=== PATIENT | male | born 1985 | race Caucasian/White ===

== ENCOUNTER 2016-11-09 10:26 | Emergency (ER) | payer BC ==
[2016-11-09 10:41] VITALS: BP 185/101
--- NOTE | 2016-11-09 11:05 | EDM.PDOC ---
ED HPI GENERAL MEDICAL PROBLEM - General Chief Complaint: Back Pain or Injury Stated Complaint: LOW BACK PAIN Time Seen by Provider: 11/09/16 11:03 Source of Information: Reports: Patient, RN Notes Reviewed - History of Present Illness INITIAL COMMENTS - FREE TEXT/NARRATIVE: 31-year-old male comes in with severe low back pain. He does have history of chronic low back pain. He has had previous surgery about a year and a half ago. 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 The pain is primarily in the low back with radiation to the buttocks bilaterally. The pain is worse with any type of motion. He states he has taken some Motrin and that has not given meaningful relief. No fall or other injury. Lower Back Pain Score (Numeric/FACES): 9 - Related Data Allergies Allergy/AdvReac Type Severity Reaction Status Date / Time Fish Containing Products Allergy Anaphylactic Verified 11/09/16 10:42 Shock shellfish derived Allergy Anaphylactic Verified 11/09/16 10:42 Shock Home Meds: Home Meds Acetaminophen/oxyCODONE [Percocet 325-5 MG] 1 tab PO Q6H PRN #20 tablet [Rx] LORazepam [Ativan] 1 mg PO Q12HR PRN #10 tablet 11/09/16 [Rx] Losartan/Hydrochlorothiazide [Hyzaar 100-25 Tablet] 1 tab PO DAILY 11/09/16 [ History] Terbinafine [LamISIL] 250 mg PO DAILY 11/09/16 [History] Past Medical History Musculoskeletal History: Reports: Back Pain, Chronic, Other (See Below) - Past Surgical History Musculoskeletal Surgical History: Reports: Other (See Below) Other Musculoskeletal Surgeries/Procedures:: back surgery Social & Family History - Family History Family Medical History: Noncontributory - Tobacco Use Smoking Status *Q: Current Some Day Smoker Years of Tobacco use: 20 Packs/Tins Daily: 0.5 - Caffeine Use Caffeine Use: Reports: Energy Drinks, Soda - Recreational Drug Use Recreational Drug Use: No ED ROS GENERAL - Review of Systems Review Of Systems: See Below Constitutional: Denies: Fever, Chills HEENT: Reports: No Symptoms Respiratory: Denies: Shortness of Breath, Pleuritic Chest Pain Cardiovascular: Denies: Chest Pain GI/Abdominal: Denies: Abdominal Pain, Nausea, Vomiting Musculoskeletal: Reports: Back Pain (Low back) Skin: Reports: No Symptoms Neurological: Denies: Numbness, Tingling ED EXAM,LOWER BACK PAIN/INJURY - Physical Exam Exam: See Below General Appearance: Alert, Moderate Distress Throat/Mouth: Normal Inspection Neck: Supple, Full Range of Motion Respiratory/Chest: No Respiratory Distress, Lungs Clear, Normal Breath Sounds Cardiovascular: Regular Rate, Rhythm Back Exam: Paraspinal Tenderness (Mild bilateral), Other (No bruising swelling warmth or erythema). No: Vertebral Tenderness Extremities: No: Pedal Edema, Leg Pain Neurological: Alert, No Motor/Sensory Deficits Course - Vital Signs Last Recorded V/S: Last Vital Signs Temp 98.4 F 11/09/16 10:37 Pulse 113 H 11/09/16 10:37 Resp 24 H 11/09/16 10:37 BP 185/101 H 11/09/16 10:37 Pulse Ox 99 11/09/16 10:37 - Orders/Labs/Meds Meds: Medications Discontinued Medications Generic Name Dose Route Start Last Admin Trade Name Freq PRN Reason Stop Dose Admin Acetaminophen 975 mg 11/09/16 11:13 11/09/16 11:24 Tylenol PO 11/09/16 11:14 975 mg NOW ONE Administration Ketorolac Tromethamine 30 mg 11/09/16 11:15 11/09/16 11:24 Toradol IVPUSH 30 mg ONETIME OFE Administration Departure - Departure Time of Disposition: 11:14 Disposition: Home, Self-Care 01 Condition: fair Clinical Impression: Low back strain Qualifiers: Encounter type: initial encounter Qualified Code(s): S39.012A - Strain of muscle, fascia and tendon of lower back, initial encounter - Discharge Information Prescriptions: LORazepam [Ativan] 1 mg PO Q12HR PRN #10 tablet PRN Reason: Muscle Spasm Acetaminophen/oxyCODONE [Percocet 325-5 MG] 1 tab PO Q6H PRN #20 tablet PRN Reason: Pain Instructions: Muscle Strain, [id number] Referrals: PCP,Unknown [Ordering Only Provider] - Forms: ED Department Discharge Additional Instructions: Rest back, alternate ice and heat as needed, he may continue Motrin or ibuprofen 2-3 times daily, Tylenol for mild to moderate discomfort or Percocet if needed for more severe pain, Ativan 1 mg twice daily if needed for muscle and nerve relaxation, do not take Tylenol and Percocet at the same time, do not drive or work when taking Ativan and Percocet as they are sedating-type medication. Followup with the clinic provider in about 3-5 days if symptoms not resolving, call [phone] as needed for appointment
[2016-11-09] MEDS ORDERED: Acetaminophen 325 MG Tab PO ONE (11:13)
[2016-11-09] MEDS ORDERED: Ketorolac 30 MG/ML SDV IVPUSH SCH (11:15)
== END 2016-11-09 11:30 | disposition home or self-care (01) ==
LOC: JD.ED 10:26
DX: S39.012A Strain of muscle, fascia and tendon of lower back, initial encounter (principal); F17.210 Nicotine dependence, cigarettes, uncomplicated; Z98.890 Other specified postprocedural states; Z91.013 Allergy to seafood; X50.0XXA Overexertion from strenuous movement or load, initial encounter
CPT/HCPCS: 96374; 99283; A9270; J1885; 99284

== ENCOUNTER 2019-08-06 07:01 | Emergency (ER) | payer OTHER ==
[2019-08-06 07:20] VITALS: BP 191/125; PULSE 120
[2019-08-06] MEDS ORDERED: Sodium Chloride 0.9% 10 ML Syringe FLUSH PRN (07:29)
[2019-08-06] MEDS ORDERED: Metoclopramide 10 MG/2 ML SDV IVPUSH ONE (07:30)
[2019-08-06] MEDS ORDERED: diphenhydrAMINE 50 MG/ML SDV IVPUSH ONE (07:31)
[2019-08-06] MEDS ORDERED: HYDROmorphone 1 MG/ML Syringe IVPUSH ONE ×2 (07:31→08:43)
--- NOTE | 2019-08-06 07:34 | EDM.PDOC ---
ED HPI GENERAL MEDICAL PROBLEM - General Chief Complaint: Back Pain or Injury Stated Complaint: L FLANK PAIN Time Seen by Provider: 08/06/19 07:20 Source of Information: Reports: Patient History Limitations: Reports: No Limitations - History of Present Illness INITIAL COMMENTS - FREE TEXT/NARRATIVE: 34-year-old male presents to the ED with acute onset of pain left posterior lateral lower ribs after coughing jag last evening about 1800 hrs. He felt something pop and tear in his left flank area which remained exquisitely tender with every breath. He coughed again about 2130 hrs. last night and felt a worsening of the pain. Every breath is very painful at this point time as is any movement. Unable to sleep all night due to the severity of the pain. He states he believes his cough is more from a smoker's cough as he is not ill with any fever chills etc. Pain is well localized to the left lower back over ribs 8 9 and 10 medial to the posterior axillary line. Patient denies that he has been on any steroids recently. Onset: Sudden Onset Date: 08/05/19 Onset Time: 18:00 Duration: Hour(s):, Constant, Getting Worse Location: Reports: Back (Pain is well localized to the left lower back eighth ninth and 10th ribs just medial to the posterior axillary line. No subcutaneous emphysema no crepitus palpable.) Quality: Reports: Sharp, Stabbing, Other Severity: Severe Improves with: Reports: Rest Worsens with: Reports: Other, Movement Context: Reports: Other. Denies: Activity, Exercise, Lifting, Sick Contact, Trauma Associated Symptoms: Reports: Chest Pain, Other Treatments [employer]: Reports: Other (see below) Left Upper Back Pain Score (Numeric/FACES): 10 - Related Data Allergies Allergy/AdvReac Type Severity Reaction Status Date / Time Fish Containing Products Allergy Anaphylactic Verified 08/06/19 07:20 Shock shellfish derived Allergy Anaphylactic Verified 08/06/19 07:20 Shock Home Meds: Home Meds Losartan/Hydrochlorothiazide [Hyzaar 100-25 Tablet] 1 tab PO DAILY 11/09/16 [ History] Acetaminophen/HYDROcodone [Llano 325-10 MG] 1 - 2 syringe PO Q6H PRN 04/07/18 [ History] Aspirin [Halfprin] 81 mg PO DAILY 04/07/18 [History] DULoxetine HCl [Duloxetine HCl] 60 mg PO DAILY 04/07/18 [History] Meloxicam 15 mg PO DAILY 04/07/18 [History] Metoprolol Succinate 100 mg PO DAILY 04/07/18 [History] Rosuvastatin [Crestor] 5 mg PO BEDTIME 04/07/18 [History] metFORMIN HCl [Metformin HCl] 500 mg PO BID 04/07/18 [History] oxyCODONE HCl/Acetaminophen [Percocet 10-325 mg Tablet] 1 - 2 each PO Q4H PRN # 28 tablet 08/06/19 [Rx] Past Medical History HEENT History: Reports: Impaired Vision Cardiovascular History: Reports: High Cholesterol, Hypertension Respiratory History: Reports: None Gastrointestinal History: Reports: None Genitourinary History: Reports: None Musculoskeletal History: Reports: Back Pain, Chronic, Other (See Below) Other Musculoskeletal History: carpal tunnel syndrome Neurological History: Reports: Neuropathy, Peripheral Psychiatric History: Reports: None Endocrine/Metabolic History: Reports: Diabetes, Type II (Trolled with metformin. ), Obesity/BMI 30+ Hematologic History: Reports: None Immunologic History: Reports: None Oncologic (Cancer) History: Reports: None Dermatologic History: Reports: None - Past Surgical History HEENT Surgical History: Reports: None Cardiovascular Surgical History: Reports: None Respiratory Surgical History: Reports: None GI Surgical History: Reports: Colonoscopy Male Surgical History: Reports: None Endocrine Surgical History: Reports: None Neurological Surgical History: Reports: Spinal Fusion Musculoskeletal Surgical History: Reports: Carpal Tunnel, Other (See Below) Other Musculoskeletal Surgeries/Procedures:: back surgery of L4L5, wrist fusion x 4, shoulder surgery, knee surgery, right carpal tunnel release Oncologic Surgical History: Reports: None Dermatological Surgical History: Reports: None Social & Family History - Family History Family Medical History: Noncontributory - Tobacco Use Smoking Status *Q: Current Every Day Smoker Tobacco Use Within Last Twelve Months: Cigarettes Years of Tobacco use: 20 Packs/Tins Daily: 1 - Caffeine Use Caffeine Use: Reports: Coffee - Recreational Drug Use Recreational Drug Use: No - Living Situation & Occupation Living situation: Reports: Occupation: Employed ED ROS GENERAL - Review of Systems Review Of Systems: See Below Constitutional: Reports: Fatigue. Denies: Fever, Chills, Malaise, Weakness HEENT: Reports: No Symptoms Respiratory: Reports: Shortness of Breath, Cough. Denies: Wheezing, Pleuritic Chest Pain Cardiovascular: Reports: No Symptoms Endocrine: Reports: No Symptoms GI/Abdominal: Reports: No Symptoms : Reports: Frequency Musculoskeletal: Reports: Back Pain Skin: Reports: No Symptoms Neurological: Reports: No Symptoms Psychiatric: Reports: No Symptoms Hematologic/Lymphatic: Reports: No Symptoms ED EXAM, UPPER BACK/NECK PAIN - Physical Exam Exam: See Below Exam Limited By: Respiratory Distress General Appearance: Alert, WD/WN, Moderate Distress GI/Abdominal: Normal Bowel Sounds, No Organomegaly, No Distention, Other ( Abdomen is obese. Very minimal tenderness to palpation along the external obliques left upper lateral abdomen.). No: Distended, Guarding, Rigid (Male) Exam: Other Back Exam: Other (It is well localized to the eighth ninth and 10th ribs just slightly medial to the posterior axillary line left lower back.) Extremities: Normal Inspection ( Subcutaneous emphysema or crepitus appreciated.), Normal Range of Motion, Non-Tender, No Pedal Edema Neurologic: No Motor/Sensory Deficits, Alert, Normal Mood/Affect, Oriented x 3 Psychiatric: Other Skin Exam: Normal Color, Warm/Dry (He is in a great deal of pain.) Course - Vital Signs Last Recorded V/S: Last Vital Signs Temp 36.7 C 08/06/19 07:17 Pulse 120 H 08/06/19 07:17 Resp 20 08/06/19 07:17 BP 191/125 H 08/06/19 07:17 Pulse Ox 97 08/06/19 07:17 - Orders/Labs/Meds Orders: Active Orders 24 hr Category Date Time Status Peripheral IV Care [RC] . DIRECTED Care 08/06/19 07:29 Active Chest wo Cont [CT] Stat Exams 08/06/19 07:29 Taken Ketorolac [Toradol] Med 08/06/19 08:45 Active 30 mg IVPUSH ONETIME Sodium Chloride 0.9% [Saline Flush] Med 08/06/19 07:29 Active 10 ml FLUSH ASDIRECTED PRN Peripheral IV Insertion Adult [OM.PC] Stat Oth 08/06/19 07:29 Ordered Medication Orders Ketorolac Tromethamine (Toradol) 30 mg IVPUSH ONETIME [facility] Last Admin: 08/06/19 09:01 Dose: 30 mg Sodium Chloride (Saline Flush) 10 ml FLUSH ASDIRECTED PRN PRN Reason: Keep Vein Open Last Admin: 08/06/19 07:40 Dose: 10 ml Meds: Medications Generic Name Dose Route Start Last Admin Trade Name Dunia PRN Reason Stop Dose Admin Ketorolac Tromethamine 30 mg 08/06/19 08:45 08/06/19 09:01 Toradol IVPUSH 30 mg ONETIME OFE Administration Sodium Chloride 10 ml 08/06/19 07:29 08/06/19 07:40 Saline Flush FLUSH 10 ml ASDIRECTED PRN Administration Keep Vein Open Discontinued Medications Generic Name Dose Route Start Last Admin Trade Name Dunia PRN Reason Stop Dose Admin Diphenhydramine HCl 25 mg 08/06/19 07:31 08/06/19 07:41 Benadryl IVPUSH 08/06/19 07:32 25 mg ONETIME ONE Administration Hydromorphone HCl 1 mg 08/06/19 07:31 08/06/19 07:39 Dilaudid IVPUSH 08/06/19 07:32 1 mg ONETIME ONE Administration Hydromorphone HCl 2 mg 08/06/19 08:43 08/06/19 08:59 Dilaudid IVPUSH 08/06/19 08:44 2 mg ONETIME ONE Administration Metoclopramide HCl 10 mg 08/06/19 07:30 08/06/19 07:39 Reglan IVPUSH 08/06/19 07:31 10 mg ONETIME ONE Administration - Radiology Interpretation Free Text/Narrative:: 34-year-old male presents to the ED with acute onset of severe left low back pain mostly over his eighth ninth and 10th ribs just slightly medial to the posterior axillary line. Pain came on suddenly after a coughing spell last evening about 1800 hrs. and was made worse by another coughing spell about 2130 hrs. Pain is sharp and stabbing and worsened with every breath. He is a very large man with BMI of greater than 48. Examination reveals pain is localized to the eighth ninth and 10th ribs. I suspect he has not fractured a rib but torn muscle in between the ribs from coughing. Plan will be to CT his chest since he is so large x-rays will not be of much use. Plan will be to give him intravenous analgesia at this point time since he can hardly get up off the bed and did not sleep at all last night. Given Reglan 10 mg IV with Dilaudid 1 mg IV. - Re-Assessments/Exams Free Text/Narrative Re-Assessment/Exam: 08/06/19 08:43 patient is having exquisite pain. He reports that pain went from a 10 to maybe 8-1/2 after the [address]aud[address] IV. CT scan of the chest on my reading shows no fractured ribs and no pleural effusion or inflammation in the lung that would account for his current pain syndrome. It appears that he has torn the muscle in between ribs with his violent coughing. Mani will be to given 2 mg of Dilaudid IV now as he is nearly 400 pounds. Also Toradol 30 mg IV as he has not taken his meloxicam yet today. 08/06/19 09:36 Patient he has gotten fairly good pain relief as he is able to laugh and joke a little bit. Wrapped his chest with 6 inch Vinod wraps to provide some support of the lower ribs. He will be discharged on Percocet tabs of 10/325 1 or 2 every 4-6 hours as needed x28 tablets. His is here to drive him home. Departure - Departure Time of Disposition: 09:37 Disposition: Home, Self-Care 01 Condition: Fair Clinical Impression: Muscle strain of chest wall - Discharge Information *PRESCRIPTION DRUG MONITORING PROGRAM REVIEWED*: Not Applicable *COPY OF PRESCRIPTION DRUG MONITORING REPORT IN PATIENT NOAH: Not Applicable Prescriptions: oxyCODONE HCl/Acetaminophen [Percocet 10-325 mg Tablet] 1 - 2 each PO Q4H PRN # 28 tablet PRN Reason: pain relief Instructions: Muscle Strain, [id number] Referrals: Ann Puckett MD [Primary Care Provider] - Forms: ED Department Discharge Additional Instructions: Evaluation in the emergency room today in regards to acute injury to the left lower posterior ribs particularly the eighth ninth and 10th ribs. CT of the chest was done to make sure there are no fractures or other causes for the acute severe pain. The CT proved to be completely normal. It appears that coughing tore the muscles in between the ribs particularly eighth and ninth and ninth and 10th ribs causing severe pain with breathing. Treatment unfortunately is time to heal. May place heat pack on the area 1/2-hour out of every 4 hours. Suggest Vinod ups on for the next 5 to 7 days for support. Pain medicine is to be Percocet 10/325 mg 1 or 2 every 4-6 hours as needed for pain relief. Suggest starting MiraLAX powder 17 g once daily to prevent constipation from the narcotic medication as it is famous for causing the bowel to slow down as well. Expect about 7 to 10 days before you are pretty well back to normal. Note the pain medicine will also substitute as a cough suppressant as well which should help alleviate further injury to your chest wall. Follow-up with personal care physician if any further problems occur. Sepsis Event Note - Evaluation Sepsis Screening Result: No Definite Risk - Focused Exam Vital Signs: Vital Signs Temp Pulse Resp BP Pulse Ox 08/06/19 07:17 36.7 C 120 H 20 191/125 H 97 Date Exam was Performed: 08/06/19 Time Exam was Performed: 09:54 - My Orders Last 24 Hours: My Active Orders 08/06/19 07:29 Peripheral IV Care [RC] . DIRECTED Chest wo Cont [CT] Stat Sodium Chloride 0.9% [Saline Flush] 10 ml FLUSH ASDIRECTED PRN Peripheral IV Insertion Adult [OM.PC] Stat 08/06/19 08:45 Ketorolac [Toradol] 30 mg IVPUSH ONETIME - Assessment/Plan Last 24 Hours: My Active Orders 08/06/19 07:29 Peripheral IV Care [RC] . DIRECTED Chest wo Cont [CT] Stat Sodium Chloride 0.9% [Saline Flush] 10 ml FLUSH ASDIRECTED PRN Peripheral IV Insertion Adult [OM.PC] Stat 08/06/19 08:45 Ketorolac [Toradol] 30 mg IVPUSH ONETIME
[2019-08-06] MEDS ORDERED: Ketorolac 30 MG/ML SDV IVPUSH SCH (08:45)
--- NOTE | 2019-08-06 11:48 | CT ---
CT chest Technique: Multiple axial sections were obtained from above the lung apices inferiorly through the lung bases. Intravenous contrast was not utilized. Comparison: No prior chest imaging is available. Findings: Mediastinum and hilar region show no adenopathy. Aorta shows no aneurysm. No coronary artery calcification is seen. No pericardial thickening is seen. No axillary adenopathy is identified. Visualized upper abdominal structures show fatty infiltration within the liver. Lungs are clear with no acute parenchymal change. No pleural effusions are seen. No pneumothorax is identified. Bone window settings were reviewed. No discrete rib fracture is appreciated. Vertebral body heights are maintained within the thoracic spine. Reconstructed sagittal images of the sternum appear within normal limits. Impression: 1. Fatty infiltration within the liver. 2. Nothing acute is seen on noncontrast CT study of the chest. Diagnostic code #2 This report was dictated in [place] Standard Time I agree with preliminary report from [facility], finalized on 08/06/19, 9:52 AM Central Time
== END 2019-08-06 10:00 | disposition home or self-care (01) ==
LOC: JD.ED 07:01
DX: S29.011A Strain of muscle and tendon of front wall of thorax, initial encounter (principal); F17.210 Nicotine dependence, cigarettes, uncomplicated; E78.00 Pure hypercholesterolemia, unspecified; I10 Essential (primary) hypertension; E11.42 Type 2 diabetes mellitus with diabetic polyneuropathy; Z79.84 Long term (current) use of oral hypoglycemic drugs; Z79.82 Long term (current) use of aspirin; Z79.899 Other long term (current) drug therapy; Z91.013 Allergy to seafood; X58.XXXA Exposure to other specified factors, initial encounter
CPT/HCPCS: 71250; 96374; 96375; 96376; 99284; J1170; J1200; J1885; J2765; 99283

== ENCOUNTER 2019-08-08 19:37 | Emergency (ER) | payer OTHER ==
[2019-08-08 19:45] VITALS: BP 161/116
[2019-08-08] MEDS ORDERED: Sodium Chloride 0.9% 10 ML Syringe FLUSH PRN ×2 (19:50→20:28)
[2019-08-08] MEDS ORDERED: Ketorolac 30 MG/ML SDV IVPUSH ONE (19:52)
[2019-08-08] MEDS ORDERED: HYDROmorphone 1 MG/ML Syringe IVPUSH ONE (19:52)
--- NOTE | 2019-08-08 19:58 | EDM.PDOC ---
ED HPI GENERAL MEDICAL PROBLEM - General Chief Complaint: General Stated Complaint: SIDE PAIN Time Seen by Provider: 08/08/19 19:45 Source of Information: Reports: Patient, Family History Limitations: Reports: No Limitations - History of Present Illness INITIAL COMMENTS - FREE TEXT/NARRATIVE: The patient presents with left sided chest and upper abdominal pain. He was seen here on the for the same. He had coughed and had severe pain after that. He was seen here by Dr Eden and a complete work up was done to include a CT of his chest and labs. No fractures were found. His labs looked good. He went home feeling better and with some percocet for pain. His pain is worse. He has it in the left lower chest and left upper abdomen. He has no nausea, vomiting, diarrhea or dysuria. He has a history of hypertension. Onset: Sudden Duration: Day(s): Location: Reports: Chest, Abdomen Quality: Reports: Sharp Severity: Severe Improves with: Reports: None Worsens with: Reports: None Associated Symptoms: Reports: Chest Pain, Nausea/Vomiting. Denies: Cough, Fever /Chills, Headaches, Shortness of Breath Left Abdomen Pain Score (Numeric/FACES): 10 - Related Data Allergies Allergy/AdvReac Type Severity Reaction Status Date / Time Fish Containing Products Allergy Anaphylactic Verified 08/06/19 07:20 Shock shellfish derived Allergy Anaphylactic Verified 08/06/19 07:20 Shock Home Meds: Home Meds Losartan/Hydrochlorothiazide [Hyzaar 100-25 Tablet] 1 tab PO DAILY 11/09/16 [ History] Acetaminophen/HYDROcodone [[place] 325-10 MG] 1 - 2 syringe PO Q6H PRN 04/07/18 [ History] Aspirin [Halfprin] 81 mg PO DAILY 04/07/18 [History] DULoxetine HCl [Duloxetine HCl] 60 mg PO DAILY 04/07/18 [History] Meloxicam 15 mg PO DAILY 04/07/18 [History] Metoprolol Succinate 100 mg PO DAILY 04/07/18 [History] Rosuvastatin [Crestor] 5 mg PO BEDTIME 04/07/18 [History] metFORMIN HCl [Metformin HCl] 500 mg PO BID 04/07/18 [History] oxyCODONE HCl/Acetaminophen [Percocet 10-325 mg Tablet] 1 - 2 each PO Q4H PRN # 28 tablet 08/06/19 [Rx] Doxycycline [Vibramycin] 100 mg PO BID #14 cap 08/08/19 [Rx] oxyCODONE HCl/Acetaminophen [Percocet 5-325 mg Tablet] 1 - 2 each PO Q6HR PRN # 20 tablet 08/08/19 [Rx] Past Medical History HEENT History: Reports: Impaired Vision Cardiovascular History: Reports: High Cholesterol, Hypertension Respiratory History: Reports: None Gastrointestinal History: Reports: None Genitourinary History: Reports: None Musculoskeletal History: Reports: Back Pain, Chronic, Other (See Below) Other Musculoskeletal History: carpal tunnel syndrome Neurological History: Reports: Neuropathy, Peripheral Psychiatric History: Reports: None Endocrine/Metabolic History: Reports: Diabetes, Type II (Trolled with metformin. ), Obesity/BMI 30+ Hematologic History: Reports: None Immunologic History: Reports: None Oncologic (Cancer) History: Reports: None Dermatologic History: Reports: None - Past Surgical History HEENT Surgical History: Reports: None Cardiovascular Surgical History: Reports: None Respiratory Surgical History: Reports: None GI Surgical History: Reports: Colonoscopy Male Surgical History: Reports: None Endocrine Surgical History: Reports: None Neurological Surgical History: Reports: Spinal Fusion Musculoskeletal Surgical History: Reports: Carpal Tunnel, Other (See Below) Other Musculoskeletal Surgeries/Procedures:: back surgery of L4L5, wrist fusion x 4, shoulder surgery, knee surgery, right carpal tunnel release Oncologic Surgical History: Reports: None Dermatological Surgical History: Reports: None Social & Family History - Family History Family Medical History: Noncontributory - Caffeine Use Caffeine Use: Reports: Coffee - Living Situation & Occupation Living situation: Reports: Occupation: Employed ED ROS GENERAL - Review of Systems Review Of Systems: See Below Constitutional: Reports: No Symptoms HEENT: Reports: No Symptoms Respiratory: Reports: No Symptoms Cardiovascular: Reports: Chest Pain (Left lower) Endocrine: Reports: No Symptoms GI/Abdominal: Reports: Abdominal Pain (Left upper abdomen). Denies: Nausea, Vomiting ED EXAM, GENERAL - Physical Exam Exam: See Below Exam Limited By: No Limitations General Appearance: Alert, Moderate Distress Ears: Normal External Exam Nose: Normal Inspection Head: Atraumatic, Normocephalic Neck: Normal Inspection Respiratory/Chest: No Respiratory Distress, Lungs Clear, Normal Breath Sounds Cardiovascular: No Edema, No Murmur, Tachycardia, Other (Severe pain upon palpation to the left lower lateral chest.) GI/Abdominal: Soft, No Organomegaly, No Mass, Tender (Moderate to sever tenderness to the left upper abdomen) Back Exam: Normal Inspection Extremities: Normal Inspection Neurological: Alert, Oriented, No Motor/Sensory Deficits EKG INTERPRETATION EKG Date: 08/08/19 Time: 20:00 Rhythm: Other (Sinus tachycardia) Rate (Beats/Min): 126 [place]: Normal P-Wave: Present QRS: Normal ST-T: Normal QT: Normal Course - Vital Signs Last Recorded V/S: Last Vital Signs Temp 98.6 F 08/08/19 19:43 Pulse 129 H 08/08/19 19:43 Resp 20 08/08/19 19:43 BP 161/116 H 08/08/19 19:43 Pulse Ox - Orders/Labs/Meds Orders: Active Orders 24 hr Category Date Time Status Cardiac Monitoring [RC] . DIRECTED Care 08/08/19 19:51 Active EKG Documentation Completion [RC] STAT Care 08/08/19 19:51 Active Peripheral IV Care [RC] . DIRECTED Care 08/08/19 19:51 Active RT Aerosol Therapy [RC] ASDIRECTED Care 08/08/19 21:38 Active Sodium Chloride 0.9% [Normal Saline] 1,000 ml Med 08/08/19 20:00 Active IV ASDIRECTED Sodium Chloride 0.9% [Saline Flush] Med 08/08/19 19:50 Active 10 ml FLUSH ASDIRECTED PRN Sodium Chloride 0.9% [Saline Flush] Med 08/08/19 20:28 Active 10 ml FLUSH ONETIME PRN cefTRIAXone [Rocephin] 2 gm Med 08/08/19 21:45 Active Sodium Chloride 0.9% [Normal Saline] 100 ml IV Q24H Peripheral IV Insertion Adult [OM.PC] Stat Oth 08/08/19 19:50 Ordered Medication Orders Sodium Chloride (Normal Saline) 1,000 mls @ 125 mls/hr IV ASDIRECTED OFE Last Admin: 08/08/19 20:06 Dose: 125 mls/hr Ceftriaxone Sodium 2 gm/ (Sodium Chloride) 100 mls @ 200 mls/hr IV Q24H [facility] Last Admin: 08/08/19 21:43 Dose: 200 mls/hr Sodium Chloride (Saline Flush) 10 ml FLUSH ASDIRECTED PRN PRN Reason: Keep Vein Open Last Admin: 08/08/19 21:18 Dose: 10 ml Sodium Chloride (Saline Flush) 10 ml FLUSH ONETIME PRN PRN Reason: Keep Vein Open Last Admin: 08/08/19 21:05 Dose: 10 ml Labs: Laboratory Tests 08/08/19 08/08/19 Range/Units 20:16 20:16 WBC 17.62 H (4.23-9.07) K/mm3 RBC 4.85 (4.63-6.08) M/mm3 Hgb 15.3 D (13.7-17.5) gm/dl Hct 47.1 (40.1-51.0) % MCV 97.1 H (79.0-92.2) fl MCH 31.5 (25.7-32.2) pg MCHC 32.5 (32.2-35.5) g/dl RDW Std Deviation 54.9 H (35.1-43.9) fL Plt Count 190 (163-337) K/mm3 MPV 11.7 (9.4-12.3) fl Neut % (Auto) 74.3 H (34.0-67.9) % Lymph % (Auto) 11.4 L (21.8-53.1) % [place] % (Auto) 12.8 H (5.3-12.2) % Eos % (Auto) 0.6 L (0.8-7.0) Baso % (Auto) 0.3 (0.1-1.2) % Neut # (Auto) 13.10 H (1.78-5.38) K/mm3 Lymph # (Auto) 2.01 (1.32-3.57) K/mm3 [place] # (Auto) 2.25 H (0.30-0.82) K/mm3 Eos # (Auto) 0.11 (0.04-0.54) K/mm3 Baso # (Auto) 0.05 (0.01-0.08) K/mm3 Manual Slide Review Abnormal smear Sodium 141 (136-145) mEq/L Potassium 4.3 (3.5-5.1) mEq/L Chloride 104 (98-107) mEq/L Carbon Dioxide 28 (21-32) mEq/L Anion Gap 13.3 (5-15) BUN 15 (7-18) mg/dL Creatinine 1.1 (0.7-1.3) mg/dL Est Cr Clr Drug Dosing 113.98 mL/min Estimated GFR (MDRD) > 60 (>60) mL/min BUN/Creatinine Ratio 13.6 L (14-18) Glucose 180 H (74-106) mg/dL Calcium 8.7 (8.5-10.1) mg/dL Total Bilirubin 0.4 (0.2-1.0) mg/dL AST 24 (15-37) U/L ALT 63 (16-63) U/L Alkaline Phosphatase 112 (46-116) U/L Troponin I < 0.017 (0.00-0.056) ng/mL Total Protein 6.6 (6.4-8.2) g/dl Albumin 3.2 L (3.4-5.0) g/dl Globulin 3.4 gm/dL Albumin/Globulin Ratio 0.9 L (1-2) Meds: Medications Generic Name Dose Route Start Last Admin Trade Name Freq PRN Reason Stop Dose Admin Sodium Chloride 1,000 mls @ 125 mls/hr 08/08/19 20:00 08/08/19 20:06 Normal Saline IV 125 mls/hr ASDIRECTED OFE Administration Ceftriaxone Sodium 2 gm/ 100 mls @ 200 mls/hr 08/08/19 21:45 08/08/19 21:43 Sodium Chloride IV 200 mls/hr Q24H OFE Administration Sodium Chloride 10 ml 08/08/19 19:50 08/08/19 21:18 Saline Flush FLUSH 10 ml ASDIRECTED PRN Administration Keep Vein Open Sodium Chloride 10 ml 08/08/19 20:28 08/08/19 21:05 Saline Flush FLUSH 10 ml ONETIME PRN Administration Keep Vein Open Discontinued Medications Generic Name Dose Route Start Last Admin Trade Name Freq PRN Reason Stop Dose Admin Albuterol/Ipratropium 3 ml 08/08/19 21:37 Duoneb 3.0-0.5 Mg/3 Ml NEB 08/08/19 21:38 ONETIME ONE Diphenhydramine HCl 50 mg 08/08/19 20:05 08/08/19 20:08 Benadryl IVPUSH 08/08/19 20:06 50 mg ONETIME ONE Administration Hydromorphone HCl 1 mg 08/08/19 19:52 08/08/19 20:07 Dilaudid IVPUSH 08/08/19 19:53 1 mg ONETIME ONE Administration Hydromorphone HCl 0.5 mg 08/08/19 21:37 08/08/19 21:42 Dilaudid IVPUSH 08/08/19 21:38 0.5 mg ONETIME ONE Administration Iopamidol 125 ml 08/08/19 20:28 08/08/19 21:00 Isovue-300 (61%) IVPUSH 08/08/19 20:29 125 ml ONETIME ONE Administration Ketorolac Tromethamine 30 mg 08/08/19 19:52 08/08/19 20:06 Toradol IVPUSH 08/08/19 19:53 30 mg ONETIME ONE Administration - Re-Assessments/Exams Free Text/Narrative Re-Assessment/Exam: 08/08/19 19:58 I ordered an IV, dilaudid 1mg IV, toradol 30mg IV, labs, EKG, UA and a CT of his abdomen and pelvis with IV contrast. 08/08/19 21:45 His EKG shows a sinus tachycardia with no acute changes. His WBC was elevated at 17.62. His glucose was elevated at 180. His troponin is negative. The CT of his chest shows scattered parenchymal densities on both sides of the chest, most likely representing multifocal pneumonia. Please correlate that patient has infectious symptoms. No additional abnormality is seen. The CT of his abdomen and pelvis shows small nonobstructing stone within each kidney. Nothing acute is seen on CT stud of the abdomen and pelvis. He does feel better. I will get him a breathing treatment, duoneb and dilaudid 0.5mg IV. I will get him on doxycycline and an albuterol inhaler for at home. I will also give him some more percocet for the pain. Departure - Departure Time of Disposition: 22:20 Disposition: Home, Self-Care 01 Condition: Good Clinical Impression: Pneumonia Qualifiers: Pneumonia type: due to unspecified organism Laterality: bilateral Lung location : lower lobe of lung Qualified Code(s): J18.9 - Pneumonia, unspecified organism - Discharge Information *PRESCRIPTION DRUG MONITORING PROGRAM REVIEWED*: No *COPY OF PRESCRIPTION DRUG MONITORING REPORT IN PATIENT NOAH: No Prescriptions: oxyCODONE HCl/Acetaminophen [Percocet 5-325 mg Tablet] 1 - 2 each PO Q6HR PRN # 20 tablet PRN Reason: Pain Doxycycline [Vibramycin] 100 mg PO BID #14 cap Referrals: PCP,None [Primary Care Provider] - Zuly Olivo PA-C [Physician Licensed Real Estate Broker] - 1 Week Forms: ED Department Discharge Additional Instructions: Take the doxycycline 2 times per day for 7 days. Use the incentive spyrometer 10 breaths every other hour while awake for 5 days. Use the inhaler 2 puffs every 6 hours as needed for shortness of breath. Take the percocet every 6 hours as needed for pain. You can also take motrin or aleve for the pain. Please return if you are worse. Sepsis Event Note - Evaluation Sepsis Screening Result: No Definite Risk - Focused Exam Vital Signs: Vital Signs Temp Pulse Resp BP 08/08/19 19:43 98.6 F 129 H 20 161/116 H Date Exam was Performed: 08/08/19 Time Exam was Performed: 21:44 - My Orders Last 24 Hours: My Active Orders 08/08/19 19:50 Sodium Chloride 0.9% [Saline Flush] 10 ml FLUSH ASDIRECTED PRN Peripheral IV Insertion Adult [OM.PC] Stat 08/08/19 19:51 Cardiac Monitoring [RC] . DIRECTED EKG Documentation Completion [RC] STAT Peripheral IV Care [RC] . DIRECTED 08/08/19 20:00 Sodium Chloride 0.9% [Normal Saline] 1,000 ml IV ASDIRECTED 08/08/19 20:28 Sodium Chloride 0.9% [Saline Flush] 10 ml FLUSH ONETIME PRN 08/08/19 21:38 RT Aerosol Therapy [RC] ASDIRECTED 08/08/19 21:45 cefTRIAXone [Rocephin] 2 gm Sodium Chloride 0.9% [Normal Saline] 100 ml IV Q24H - Assessment/Plan Last 24 Hours: My Active Orders 08/08/19 19:50 Sodium Chloride 0.9% [Saline Flush] 10 ml FLUSH ASDIRECTED PRN Peripheral IV Insertion Adult [OM.PC] Stat 08/08/19 19:51 Cardiac Monitoring [RC] . DIRECTED EKG Documentation Completion [RC] STAT Peripheral IV Care [RC] . DIRECTED 08/08/19 20:00 Sodium Chloride 0.9% [Normal Saline] 1,000 ml IV ASDIRECTED 08/08/19 20:28 Sodium Chloride 0.9% [Saline Flush] 10 ml FLUSH ONETIME PRN 08/08/19 21:38 RT Aerosol Therapy [RC] ASDIRECTED 08/08/19 21:45 cefTRIAXone [Rocephin] 2 gm Sodium Chloride 0.9% [Normal Saline] 100 ml IV Q24H
[2019-08-08] MEDS ORDERED: Sodium Chloride 0.9% 1,000 ML IV SCH (20:00)
[2019-08-08] MEDS ORDERED: diphenhydrAMINE 50 MG/ML SDV IVPUSH ONE (20:05)
[2019-08-08] MEDS ORDERED: Iopamidol 612 MG/ML 100 ML Bottle IVPUSH ONE (20:28)
--- NOTE | 2019-08-08 21:28 | CT ---
CT chest Technique: Multiple axial sections through the chest were obtained. Intravenous contrast was utilized. Delayed images were also obtained through the pelvis. Comparison: Prior CT chest exam of 08/06/19. Findings: Parenchymal density is noted within the left lung base. Minimal parenchymal density is within the right lung base. Patchy areas of increased density within both upper lungs are also noted. These findings are an interval change from previous exam. Findings most likely are infectious representing early multifocal pneumonia. Mediastinum shows no adenopathy. Aorta shows no aneurysm. No axillary adenopathy is seen. No pericardial effusions are seen. Bone window settings were reviewed which shows no acute osseous finding. Impression: 1. Scattered parenchymal densities on both sides of the chest as noted above most likely representing multifocal pneumonia. Please correlate that patient has infectious symptoms. 2. No additional abnormality is seen. Diagnostic code #3 CT abdomen and pelvis Technique: Multiple axial sections were obtained from above the dome of the diaphragm inferiorly through the pubic symphysis. Intravenous contrast was utilized. No oral contrast has been given. Findings: Liver contains no focal parenchymal abnormality. Spleen also appears without focal abnormality. Spleen size is normal. Adrenal glands show no nodule. Pancreas is within normal limits. Gallbladder contains no calcified gallstones. Kidneys show symmetric contrast enhancement. Small 5 mm nonobstructing stone is noted within the left kidney. Small 2-3 mm calcification is noted within the lower left kidney compatible with additional nonobstructing calculus. Ureters show no abnormal calcifications. 2 ureters are noted on the left side join distally prior to the UVJ. Contrast on delayed images are seen within both ureters and bladder. Aorta shows mild atherosclerotic calcification. No aneurysm is seen. No retroperitoneal adenopathy is noted. Appendix is seen and is normal in size. No pelvic mass or adenopathy is seen. Fat-containing left inguinal hernia is noted. Bone window settings were reviewed which shows previous surgery at L4-L5. No acute osseous finding is seen. Impression: 1. Small nonobstructing stone within each kidney. 2. Nothing acute is seen on CT study of the abdomen and pelvis. Diagnostic code #2 Study was dictated in [place] Standard Time
[2019-08-08] MEDS ORDERED: Albuterol/Ipratropium 3.0-0.5 MG/3 ML Neb Soln NEB ONE (21:37)
[2019-08-08] MEDS ORDERED: HYDROmorphone 0.5 MG/0.5 ML Syringe IVPUSH ONE (21:37)
[2019-08-08] MEDS ORDERED: cefTRIAXone 2 GM in Sodium Chloride 0.9% 100 ML IV SCH (21:45)
[2019-08-08] MEDS ORDERED: Albuterol 6.7 GM Inhaler INH ONE (21:51)
[2019-08-08 22:55] VITALS: PULSE 115
== END 2019-08-08 22:40 | disposition home or self-care (01) ==
LOC: JD.ED 19:37
DX: J18.9 Pneumonia, unspecified organism (principal); E78.00 Pure hypercholesterolemia, unspecified; I10 Essential (primary) hypertension; E11.42 Type 2 diabetes mellitus with diabetic polyneuropathy; E66.9 Obesity, unspecified; Z68.42 Body mass index [BMI] 45.0-49.9, adult; Z91.013 Allergy to seafood; Z79.84 Long term (current) use of oral hypoglycemic drugs; Z79.899 Other long term (current) drug therapy
CPT/HCPCS: 36415; 71260; 74177; 80053; 84484; 85025; 93005; 94640; 96361; 96365; 96375; 96376; 99285; A9270; J0696; J1170; J1200; J1885; J7030; J7050; Q9967; 93010; 99284; J7620-GY

== ENCOUNTER 2020-04-30 12:29 | Emergency (ER) | payer MEDICAID ==
[2020-04-30] MEDS ORDERED: Sodium Chloride 0.9% 10 ML Syringe FLUSH PRN ×2 (13:20→14:07)
[2020-04-30] MEDS ORDERED: HYDROmorphone 1 MG/ML Syringe IVPUSH ONE ×2 (13:21→15:46)
[2020-04-30] MEDS ORDERED: Sodium Chloride 0.9% 1,000 ML IV SCH (13:30)
[2020-04-30] MEDS ORDERED: methylPREDNISolone Sodium Succinate 125 MG/2 ML SDV IVPUSH ONE (13:35)
[2020-04-30] MEDS ORDERED: Iopamidol 755 Mg/ML 100 ML Bottle IVPUSH ONE (14:07)
[2020-04-30] MEDS ORDERED: Sodium Chloride 0.9% 45 ML IV SCH (14:45)
--- NOTE | 2020-04-30 15:02 | CT ---
PROCEDURE INFORMATION: Exam: CT Angiography Chest With Contrast Exam date and time: 04/30/2020 2:21 PM Age: 35 years old Clinical indication: Sternal or substernal pain; Patient HX: Mid sternal chest pain TECHNIQUE: Imaging protocol: Computed tomographic angiography of the chest with intravenous contrast. 3D rendering (Not supervised by radiologist): MIP and/or 3D reconstructed images were created by the technologist. Radiation optimization: All CT scans at this facility use at least one of these dose optimization techniques: automated exposure control; mA and/or kV adjustment per patient size (includes targeted exams where dose is matched to clinical indication); or iterative reconstruction. Contrast material: ISOVUE 370; Contrast volume: 100 ml; Contrast route: INTRAVENOUS (IV); COMPARISON: CT Chest Abdomen Pelvis w Cont 08/08/2019 8:36 PM FINDINGS: Pulmonary arteries: No evidence of pulmonary embolism. Aorta: No evidence of aortic dissection. Lungs: Unremarkable. No consolidation. No masses. Pleural space: Unremarkable. No pneumothorax. No pleural effusion. Heart: Unremarkable. No cardiomegaly. No pericardial effusion. Lymph nodes: Unremarkable. No enlarged lymph nodes. Bones/joints: The thoracic spine demonstrates mild degenerative changes at multiple levels. Soft tissues: Unremarkable. IMPRESSION: 1. No evidence of pulmonary embolism. 2. No evidence of aortic dissection. Thank you for allowing us to participate in the care of your patient. Dictated and Authenticated by: Abhi Khan DO 04/30/2020 4:00 PM Central Time ([place] & [place]) SHERINE
[2020-04-30] MEDS ORDERED: Ketorolac 30 MG/ML SDV IVPUSH ONE (16:02)
--- NOTE | 2020-04-30 16:05 | EDM.PDOC ---
ED HPI GENERAL MEDICAL PROBLEM - General Chief Complaint: Chest Pain Stated Complaint: PAIN IN STERNUM Time Seen by Provider: 04/30/20 13:10 Source of Information: Reports: Patient History Limitations: Reports: No Limitations - History of Present Illness INITIAL COMMENTS - FREE TEXT/NARRATIVE: The patient presents with chest pain. This started 2 nights ago. He was eating some noodles and it caused him to cough and after that he had pain to the mid chest. The elisabeth has gotten worse. He has no fever, chill, cough, congestion, runny nose, shortness of breath, abdominal pain, nausea or vomiting. He has a history of hypertension and hypercholesterolemia. He does not have a history of heart disease. He says it hurts worse to take a deep breath. Onset: Sudden Duration: Day(s): Location: Reports: Chest Quality: Reports: Sharp Severity: Severe Improves with: Reports: Immobilization Worsens with: Reports: Breathing, Movement Context: Denies: Trauma Associated Symptoms: Reports: Chest Pain. Denies: Cough, Fever/Chills, Headaches, Nausea/Vomiting, Shortness of Breath Sternum Pain Score (Numeric/FACES): 10 - Related Data Allergies Allergy/AdvReac Type Severity Reaction Status Date / Time Fish Containing Products Allergy Anaphylactic Verified 04/30/20 13:06 Shock shellfish derived Allergy Anaphylactic Verified 04/30/20 13:06 Shock Home Meds: Home Meds Losartan/Hydrochlorothiazide [Hyzaar 100-25 Tablet] 1 tab PO DAILY 11/09/16 [History] Acetaminophen/HYDROcodone [[place] 325-10 MG] 1 - 2 syringe PO Q6H PRN 04/07/18 [History] Aspirin [Halfprin] 81 mg PO DAILY 04/07/18 [History] DULoxetine HCl [Duloxetine HCl] 60 mg PO DAILY 04/07/18 [History] Meloxicam 15 mg PO DAILY 04/07/18 [History] Metoprolol Succinate 100 mg PO DAILY 04/07/18 [History] Rosuvastatin [Crestor] 5 mg PO BEDTIME 04/07/18 [History] metFORMIN HCl [Metformin HCl] 500 mg PO BID 04/07/18 [History] oxyCODONE HCl/Acetaminophen [Percocet 10-325 mg Tablet] 1 - 2 each PO Q4H PRN #28 tablet 08/06/19 [Rx] Doxycycline [Vibramycin] 100 mg PO BID #14 cap 08/08/19 [Rx] oxyCODONE HCl/Acetaminophen [Percocet 5-325 mg Tablet] 1 - 2 each PO Q6HR PRN #20 tablet 08/08/19 [Rx] Hydrocodone/Acetaminophen [Hydrocodone-Acetamin 5-325 mg] 1 - 2 each PO Q6HR PRN #20 tablet 04/30/20 [Rx] Past Medical History HEENT History: Reports: Impaired Vision Cardiovascular History: Reports: High Cholesterol, Hypertension Respiratory History: Reports: None Gastrointestinal History: Reports: None Genitourinary History: Reports: None Musculoskeletal History: Reports: Back Pain, Chronic, Other (See Below) Other Musculoskeletal History: carpal tunnel syndrome Neurological History: Reports: Neuropathy, Peripheral Psychiatric History: Reports: None Endocrine/Metabolic History: Reports: Diabetes, Type II, Obesity/BMI 30+ Hematologic History: Reports: None Immunologic History: Reports: None Oncologic (Cancer) History: Reports: None Dermatologic History: Reports: None - Past Surgical History HEENT Surgical History: Reports: None Cardiovascular Surgical History: Reports: None Respiratory Surgical History: Reports: None GI Surgical History: Reports: Colonoscopy Male Surgical History: Reports: None Endocrine Surgical History: Reports: None Neurological Surgical History: Reports: Spinal Fusion Musculoskeletal Surgical History: Reports: Carpal Tunnel, Other (See Below) Other Musculoskeletal Surgeries/Procedures:: back surgery of L4L5, wrist fusion x 4, shoulder surgery, knee surgery, right carpal tunnel release Oncologic Surgical History: Reports: None Dermatological Surgical History: Reports: None Social & Family History - Family History Family Medical History: No Pertinent Family History - Tobacco Use Tobacco Use Status *Q: Current Every Day Tobacco User Years of Tobacco use: 20 Packs/Tins Daily: 0.5 - Caffeine Use Caffeine Use: Reports: Energy Drinks, Soda - Recreational Drug Use Recreational Drug Use: No - Living Situation & Occupation Living situation: Reports: Occupation: Employed ED ROS GENERAL - Review of Systems Review Of Systems: See Below Constitutional: Reports: No Symptoms HEENT: Reports: No Symptoms Respiratory: Reports: No Symptoms Cardiovascular: Reports: Chest Pain Endocrine: Reports: No Symptoms GI/Abdominal: Reports: No Symptoms : Reports: No Symptoms Musculoskeletal: Reports: No Symptoms ED EXAM, GENERAL - Physical Exam Exam: See Below Exam Limited By: No Limitations General Appearance: Alert, No Apparent Distress Ears: Normal External Exam Nose: Normal Inspection Head: Atraumatic, Normocephalic Neck: Normal Inspection Respiratory/Chest: No Respiratory Distress, Lungs Clear, Normal Breath Sounds Cardiovascular: Regular Rate, Rhythm, No Edema, No Murmur GI/Abdominal: Soft, Non-Tender, No Organomegaly, No Mass Back Exam: Normal Inspection Extremities: Normal Inspection #1 Interpretation EKG Date: 04/30/20 Time: 13:59 Rhythm: Other (sinus tachycardia) Rate (Beats/Min): 100 [place]: Normal P-Wave: Present QRS: Normal ST-T: Normal QT: Normal Course - Vital Signs Last Recorded V/S: Last Vital Signs Temp 98.4 F 04/30/20 13:06 Pulse 107 H 04/30/20 13:06 Resp 20 04/30/20 13:06 BP 198/131 H 04/30/20 13:06 Pulse Ox 96 04/30/20 13:06 - Orders/Labs/Meds Orders: Active Orders 24 hr Category Date Time Status Cardiac Monitoring [RC] . DIRECTED Care 04/30/20 13:20 Active EKG Documentation Completion [RC] STAT Care 04/30/20 13:20 Active Peripheral IV Care [RC] . DIRECTED Care 04/30/20 13:21 Active Sodium Chloride 0.9% [Normal Saline] 1,000 ml Med 04/30/20 13:30 Active IV ASDIRECTED Sodium Chloride 0.9% [Normal Saline] 45 ml Med 04/30/20 14:45 Active IV ASDIRECTED Sodium Chloride 0.9% [Saline Flush] Med 04/30/20 13:20 Active 10 ml FLUSH ASDIRECTED PRN Sodium Chloride 0.9% [Saline Flush] Med 04/30/20 14:07 Active 10 ml FLUSH ONETIME PRN Peripheral IV Insertion Adult [OM.PC] Stat Oth 04/30/20 13:20 Ordered Medication Orders Sodium Chloride (Normal Saline) 1,000 mls @ 125 mls/hr IV ASDIRECTED OFE Last Admin: 04/30/20 13:41 Dose: 125 mls/hr Documented by: PAUL Sodium Chloride (Normal Saline) 45 mls @ 40 mls/hr IV ASDIRECTED OFE Last Admin: 04/30/20 14:33 Dose: 40 mls/hr Documented by: LINDA Sodium Chloride (Saline Flush) 10 ml FLUSH ASDIRECTED PRN PRN Reason: Keep Vein Open Last Admin: 04/30/20 13:41 Dose: 10 ml Documented by: PAUL Sodium Chloride (Saline Flush) 10 ml FLUSH ONETIME PRN PRN Reason: Keep Vein Open Last Admin: 04/30/20 14:30 Dose: 10 ml Documented by: LINDA Labs: Laboratory Tests 04/30/20 04/30/20 Range/Units 13:40 13:40 WBC 14.39 H (4.23-9.07) K/mm3 RBC 5.23 (4.63-6.08) M/mm3 Hgb 16.5 (13.7-17.5) gm/dl Hct 52.6 H (40.1-51.0) % MCV 100.6 H D (79.0-92.2) fl MCH 31.5 (25.7-32.2) pg MCHC 31.4 L (32.2-35.5) g/dl RDW Std Deviation 60.5 H (35.1-43.9) fL Plt Count 169 (163-337) K/mm3 MPV 11.4 (9.4-12.3) fl Neut % (Auto) 71.0 H (34.0-67.9) % Lymph % (Auto) 16.7 L (21.8-53.1) % [place]ady % (Auto) 10.0 (5.3-12.2) % Eos % (Auto) 1.0 (0.8-7.0) Baso % (Auto) 0.3 (0.1-1.2) % Neut # (Auto) 10.21 H (1.78-5.38) K/mm3 Lymph # (Auto) 2.41 (1.32-3.57) K/mm3 [place]ady # (Auto) 1.44 H (0.30-0.82) K/mm3 Eos # (Auto) 0.14 (0.04-0.54) K/mm3 Baso # (Auto) 0.05 (0.01-0.08) K/mm3 Manual Slide Review Abnormal smear Sodium 140 (136-145) mEq/L Potassium 4.3 (3.5-5.1) mEq/L Chloride 103 (98-107) mEq/L Carbon Dioxide 27 (21-32) mEq/L Anion Gap 14.3 (5-15) BUN 19 H (7-18) mg/dL Creatinine 1.3 (0.7-1.3) mg/dL Est Cr Clr Drug Dosing 95.52 mL/min Estimated GFR (MDRD) > 60 (>60) mL/min BUN/Creatinine Ratio 14.6 (14-18) Glucose 151 H (74-106) mg/dL Calcium 9.5 (8.5-10.1) mg/dL Total Bilirubin 0.4 (0.2-1.0) mg/dL AST 27 (15-37) U/L ALT 91 H (16-63) U/L Alkaline Phosphatase 117 H (46-116) U/L Troponin I < 0.017 (0.00-0.056) ng/mL C-Reactive Protein 1.4 H* (<1.0) mg/dL Total Protein 7.1 (6.4-8.2) g/dl Albumin 3.8 (3.4-5.0) g/dl Globulin 3.3 gm/dL Albumin/Globulin Ratio 1.2 (1-2) Meds: Medications Generic Name Dose Route Start Last Admin Trade Name Freq PRN Reason Stop Dose Admin Sodium Chloride 1,000 mls @ 125 mls/hr 04/30/20 13:30 04/30/20 13:41 Normal Saline IV 125 mls/hr ASDIRECTED OFE Administration Sodium Chloride 45 mls @ 40 mls/hr 04/30/20 14:45 04/30/20 14:33 Normal Saline IV 40 mls/hr ASDIRECTED OFE Administration Sodium Chloride 10 ml 04/30/20 13:20 04/30/20 13:41 Saline Flush FLUSH 10 ml ASDIRECTED PRN Administration Keep Vein Open Sodium Chloride 10 ml 04/30/20 14:07 04/30/20 14:30 Saline Flush FLUSH 10 ml ONETIME PRN Administration Keep Vein Open Discontinued Medications Generic Name Dose Route Start Last Admin Trade Name Freq PRN Reason Stop Dose Admin Hydromorphone HCl 1 mg 04/30/20 13:21 04/30/20 13:42 Dilaudid IVPUSH 04/30/20 13:22 1 mg ONETIME ONE Administration Hydromorphone HCl 1 mg 04/30/20 15:46 04/30/20 15:53 Dilaudid IVPUSH 04/30/20 15:47 1 mg ONETIME ONE Administration Iopamidol 100 ml 04/30/20 14:07 04/30/20 14:30 Isovue-370 (76%) IVPUSH 04/30/20 14:08 100 ml ONETIME ONE Administration Ketorolac Tromethamine 30 mg 04/30/20 16:02 04/30/20 16:08 Toradol IVPUSH 04/30/20 16:03 30 mg ONETIME ONE Administration Methylprednisolone Sodium Succinate 125 mg 04/30/20 13:35 04/30/20 13:45 Solu-Medrol IVPUSH 04/30/20 13:36 125 mg ONETIME ONE Administration - Re-Assessments/Exams Free Text/Narrative Re-Assessment/Exam: 04/30/20 16:20 I ordered an IV NS, labs, dilaudid 1mg IV, EKG, and angio of chest. His EKG s hows a sinus tachycardia with no acute changes. His WBC is elevated at 14.39. His ALT is elevated at 91. His alk phos was elevated at 117. His troponin is negative. His CRP is elevated at 1.4. His chest angio shows no evidence of PE or aortic dissection. He still has pain so I ordered dilaudid 1mg IV. I will discharge him home with something for pain. Departure - Departure Time of Disposition: 16:30 Disposition: Home, Self-Care 01 Condition: Good Clinical Impression: Atypical chest pain Prescriptions: Hydrocodone/Acetaminophen [Hydrocodone-Acetamin 5-325 mg] 1 - 2 each PO Q6HR PRN #20 tablet PRN Reason: Pain Referrals: Ann Puckett NP [Primary Care Provider] - 1 Week Forms: ED Department Discharge Additional Instructions: Drink plenty of fluids. Take motrin or aleve for pain. If that does not help, try the hydrocodone. Follow up with your provider within a week. Please return if you are worse. Sepsis Event Note (ED) - Evaluation Sepsis Screening Result: No Definite Risk - Focused Exam Vital Signs: Vital Signs Temp Pulse Resp BP Pulse Ox 04/30/20 13:06 98.4 F 107 H 20 198/131 H 96 - My Orders Last 24 Hours: My Active Orders 04/30/20 13:20 Cardiac Monitoring [RC] . DIRECTED EKG Documentation Completion [RC] STAT Sodium Chloride 0.9% [Saline Flush] 10 ml FLUSH ASDIRECTED PRN Peripheral IV Insertion Adult [OM.PC] Stat 04/30/20 13:21 Peripheral IV Care [RC] . DIRECTED 04/30/20 13:30 Sodium Chloride 0.9% [Normal Saline] 1,000 ml IV ASDIRECTED 04/30/20 14:07 Sodium Chloride 0.9% [Saline Flush] 10 ml FLUSH ONETIME PRN 04/30/20 14:45 Sodium Chloride 0.9% [Normal Saline] 45 ml IV ASDIRECTED - Assessment/Plan Last 24 Hours: My Active Orders 04/30/20 13:20 Cardiac Monitoring [RC] . DIRECTED EKG Documentation Completion [RC] STAT Sodium Chloride 0.9% [Saline Flush] 10 ml FLUSH ASDIRECTED PRN Peripheral IV Insertion Adult [OM.PC] Stat 04/30/20 13:21 Peripheral IV Care [RC] . DIRECTED 04/30/20 13:30 Sodium Chloride 0.9% [Normal Saline] 1,000 ml IV ASDIRECTED 04/30/20 14:07 Sodium Chloride 0.9% [Saline Flush] 10 ml FLUSH ONETIME PRN 04/30/20 14:45 Sodium Chloride 0.9% [Normal Saline] 45 ml IV ASDIRECTED
[2020-04-30 17:01] VITALS: BP 172/111; PULSE 111
== END 2020-04-30 16:45 | disposition home or self-care (01) ==
LOC: JD.ED 12:29
DX: R07.89 Other chest pain (principal); R05 Cough; E66.9 Obesity, unspecified; I10 Essential (primary) hypertension; E78.00 Pure hypercholesterolemia, unspecified; E11.42 Type 2 diabetes mellitus with diabetic polyneuropathy; F17.210 Nicotine dependence, cigarettes, uncomplicated; R79.89 Other specified abnormal findings of blood chemistry; Z91.013 Allergy to seafood; Z79.82 Long term (current) use of aspirin; Z79.899 Other long term (current) drug therapy
CPT/HCPCS: 36415; 71275; 80053; 84484; 85025; 86140; 93005; 96374; 96375; 96376; 99285; J1170; J1885; J2930; J7030; Q9967

== ENCOUNTER 2020-07-07 10:01 | Emergency (ER) | payer BC, MEDICAID ==
[2020-07-07 10:21] VITALS: BP 161/114; PULSE 104
--- NOTE | 2020-07-07 10:24 | EDM.PDOC ---
ED HPI GENERAL MEDICAL PROBLEM - General Chief Complaint: General Stated Complaint: L SIDE HIP/GROIN PAIN Time Seen by Provider: 07/07/20 10:23 Source of Information: Reports: Patient History Limitations: Reports: No Limitations - History of Present Illness INITIAL COMMENTS - FREE TEXT/NARRATIVE: 35-year-old male presents to the ED for evaluation of diffuse left-sided abdominal pain starting along the left lateral costal margin and as far as the posterior axillary line and traveling down towards the left groin along the left pelvic brim. Patient is morbidly obese and is contemplating gastric bypass surgery in the very near future in [place]. He is known to have a left inguinal hernia but states the pain in that area is not as bad as it has been in the past. Does not remember any significant lifting pushing pulling or other activities that would have injured the abdominal wall muscles. It hurts to get in and out of bed it hurts to get in and out of the car it hurts to laugh cough or sneeze. It is difficult to stand upright completely as well. This started about 3 days ago and is progressively gotten worse. He states it has really no worse than yesterday however. No associated fever chills or problems with voiding. No past history of renal lithiasis. No recent steroid use. Onset: Gradual Onset Date: 07/04/20 Duration: Day(s):, Getting Worse Location: Reports: Abdomen (Left upper lateral abdominal wall starting along the costal margin in the posterior axillary line and travels to the midclavicular line and then down along the pelvic brim compatible with the distribution of the oblique abdominal muscles.) Quality: Reports: Ache, Sharp, Stabbing, Other Severity: Moderate (Stick component to the pain at times 7 out of 10) Improves with: Reports: Rest (No pain at rest unless he deep breathes.) Worsens with: Reports: Breathing (Breathing coughing), Movement (Getting out of bed) Context: Reports: Other (Spontaneous occurrence starting 3 days ago.). Denies: Activity ( getting in and out of the vehicle make the pain much worse.), Exercise, Lifting, Sick Contact, Trauma Associated Symptoms: Reports: No Other Symptoms, Shortness of Breath. Denies: Confusion, Chest Pain, Cough, cough w sputum, Diaphoresis, Headaches, Loss of Appetite, Malaise, Nausea/Vomiting, Seizure, Syncope, Weakness Treatments ASSISTED LIVING ASSISTANT: Reports: Other (see below) (None.) Left Groin Pain Score (Numeric/FACES): 8 - Related Data Allergies Allergy/AdvReac Type Severity Reaction Status Date / Time Fish Containing Products Allergy Anaphylactic Verified 07/07/20 10:21 Shock shellfish derived Allergy Anaphylactic Verified 07/07/20 10:21 Shock Home Meds: Home Meds Losartan/Hydrochlorothiazide [Hyzaar 100-25 Tablet] 1 tab PO DAILY 11/09/16 [History] DULoxetine HCl [Duloxetine HCl] 60 mg PO DAILY 04/07/18 [History] Meloxicam 15 mg PO DAILY 04/07/18 [History] metFORMIN HCl [Metformin HCl] 500 mg PO BID 04/07/18 [History] Allopurinol [Zyloprim] 100 mg PO DAILY 07/07/20 [History] Labetalol [Normodyne] 200 mg PO BID 07/07/20 [History] Pregabalin [Lyrica] 150 mg PO BID 07/07/20 [History] amLODIPine Besylate [Norvasc] 10 mg PO DAILY 07/07/20 [History] oxyCODONE HCl/Acetaminophen [Percocet 10-325 mg Tablet] 1 - 2 each PO Q4H PRN #28 tablet 07/07/20 [Rx] Past Medical History HEENT History: Reports: Impaired Vision Cardiovascular History: Reports: High Cholesterol, Hypertension Respiratory History: Reports: None Gastrointestinal History: Reports: None Genitourinary History: Reports: None Musculoskeletal History: Reports: Back Pain, Chronic, Other (See Below) Other Musculoskeletal History: carpal tunnel syndrome Neurological History: Reports: Neuropathy, Peripheral Psychiatric History: Reports: None Endocrine/Metabolic History: Reports: Diabetes, Type II, Obesity/BMI 30+ Hematologic History: Reports: None Immunologic History: Reports: None Oncologic (Cancer) History: Reports: None Dermatologic History: Reports: None - Past Surgical History HEENT Surgical History: Reports: None Cardiovascular Surgical History: Reports: None Respiratory Surgical History: Reports: None GI Surgical History: Reports: Colonoscopy Male Surgical History: Reports: None Endocrine Surgical History: Reports: None Neurological Surgical History: Reports: Spinal Fusion Musculoskeletal Surgical History: Reports: Carpal Tunnel, Other (See Below) Other Musculoskeletal Surgeries/Procedures:: back surgery of L4L5, wrist fusion x 4, shoulder surgery, knee surgery, right carpal tunnel release Oncologic Surgical History: Reports: None Dermatological Surgical History: Reports: None Social & Family History - Family History Family Medical History: No Pertinent Family History - Caffeine Use Caffeine Use: Reports: Energy Drinks, Soda - Living Situation & Occupation Living situation: Reports: Occupation: Employed ED ROS GENERAL - Review of Systems Review Of Systems: See Below Constitutional: Reports: Malaise, Fatigue. Denies: Fever, Chills HEENT: Reports: No Symptoms Respiratory: Reports: Shortness of Breath. Denies: Wheezing, Pleuritic Chest Pain (Minimal exertion.), Cough, Sputum Cardiovascular: Reports: Blood Pressure Problem, Dyspnea on Exertion, Edema (Usually has some edema both lower extremities in the distribution of his socks), Orthopnea. Denies: Chest Pain, Claudication (Poorly controlled hypertension mainly due to noncompliance with medication), Lightheadedness Endocrine: Reports: Fatigue GI/Abdominal: Reports: Abdominal Pain (See history of present illness). Denies: Constipation, Diarrhea, Decreased Appetite, Nausea, Stool Incontinence, Vomiting : Reports: Frequency Musculoskeletal: Reports: Back Pain, Joint Pain (He sips neck at times) Skin: Reports: No Symptoms Neurological: Reports: No Symptoms Psychiatric: Reports: No Symptoms Hematologic/Lymphatic: Reports: No Symptoms Immunologic: Reports: No Symptoms ED EXAM, GENERAL - Physical Exam Exam: See Below Exam Limited By: No Limitations General Appearance: Alert, WD/WN, Moderate Distress, Other (Temperature is 36.4 with a heart rate of 104 at the bedside. Respiratory it is 20 with O2 sats of 98% on room air BP elevated 161 114. He admits to not being very compliant with his antihypertensive treatment plan) Eye Exam: Bilateral Eye: Normal Inspection, PERRL Throat/Mouth: Normal Inspection, Normal Lips, Normal Oropharynx Head: Atraumatic, Normocephalic Respiratory/Chest: No Respiratory Distress, Lungs Clear, Normal Breath Sounds, No Accessory Muscle Use, Chest Non-Tender Cardiovascular: Normal Peripheral Pulses, Regular Rate, Rhythm, No Edema, No Gallop, No Murmur, No Rub Peripheral Pulses: 2+: Posterior Tibial (L), Posterior Tibial (R), Dorsalis Pedis (L), Dorsalis Pedis (R), 3+: Carotid (L), Carotid (R) GI/Abdominal: Normal Bowel Sounds, Soft, Tender (He has tenderness in the distribution of the external oblique muscles left side of abdominal wall originating off the left lower costal margin and traveling down along the lateral abdominal to the pelvic brim from posterior iliac crest to the inguinal area. There is no evidence of incarcerated inguinal hernia. He has marked pain to palpation along this distribution. Worse if he coughs or sneezes.) Back Exam: Decreased Range of Motion (Increased lordotic curvature) Extremities: Normal Range of Motion, Non-Tender, Pedal Edema (Patient pedal edema both lower extremities distal tib-fib) Neurological: Alert, Oriented, CN II-XII Intact, Normal Cognition, Normal Gait Psychiatric: Normal Affect, Normal Mood Skin Exam: Warm, Dry, Intact, Normal Color, No Rash Course - Vital Signs Last Recorded V/S: Last Vital Signs Temp 36.4 C 07/07/20 10:13 Pulse 104 H 07/07/20 10:13 Resp 20 07/07/20 10:13 BP 161/114 H 07/07/20 10:13 Pulse Ox 98 07/07/20 10:13 - Orders/Labs/Meds Meds: Medications Discontinued Medications Generic Name Dose Route Start Last Admin Trade Name Freq PRN Reason Stop Dose Admin Ondansetron HCl 4 mg 07/07/20 10:31 07/07/20 10:52 Zofran Odt PO 07/07/20 10:32 4 mg ONETIME ONE Administration Oxycodone/Acetaminophen 3 tab 07/07/20 10:31 07/07/20 10:53 Percocet 325-5 Mg PO 07/07/20 10:32 3 tab ONETIME ONE Administration - Radiology Interpretation Free Text/Narrative:: 35-year-old male presents to the ED for evaluation of diffuse left-sided abdominal pain that started 3 days ago and has been very intense over the last 2 days limiting his ability to stand fully erect. It is very difficult to get into bed or in and out of a vehicle. He knows of no definitive injury to the abdominal wall. He is able to make the pain worse by palpating along the left lateral abdominal wall. On my examination pain is definitely muscular in origin coming from the abdominal wall left side most likely the external oblique muscles where they come off the lower ribs and traverse the pelvic brim to the inguinal area. It is made worse by deep breathing coughing or sneezing. No evidence of incarcerated left inguinal hernia. Patient is morbidly obese and this is the reason for muscle wall strain. Plan will be to place him on Percocet tabs 10/325 mg since he weighs more than 400 pounds he will likely take 1 or 2 tablets every 4-6 hours necessary for pain relief and this will likely take 7 to 10 days to settle down. Advised MiraLAX powder 17 g once daily while taking narcotic pain medicine to prevent constipation. Departure - Departure Time of Disposition: 10:41 Disposition: Home, Self-Care 01 Condition: Fair Clinical Impression: Strain of muscle, fascia and tendon of abdomen, initial encounter - Discharge Information *PRESCRIPTION DRUG MONITORING PROGRAM REVIEWED*: Not Applicable *COPY OF PRESCRIPTION DRUG MONITORING REPORT IN PATIENT NOAH: Not Applicable Prescriptions: oxyCODONE HCl/Acetaminophen [Percocet 10-325 mg Tablet] 1 - 2 each PO Q4H PRN #28 tablet PRN Reason: Pain relief Referrals: Ann uPckett [employer]INE [Primary Care Provider] - Forms: ED Department Discharge Additional Instructions: Evaluation in the emergency room today in regards to gradually worsening left- sided abdominal wall pain over the last 3 days. No known acute injury by lifting something heavy or straining by twisting and turning repetitively. Examination reveals pain along the distribution of the abdominal wall muscles primarily the external oblique muscles. There are 3 layers of muscles in the abdominal wall. You have strained the left-sided external oblique where they come off the lower ribs and travel down along the pelvic brim to the groin. As well it hurts to cough sneeze getting out of a vehicle and to stand fully erect. Muscles are weak secondary to abdominal muscle strain secondary to obesity. Think of this is a muscle tear. On average is going to be 7 to 14 days for this to completely heal. May use Percocet tabs 10/325 mg strength 1 or 2 every 4-6 hours as necessary for pain relief for the next few days until the pain starts to ease up. Usually day 2 and 3 are the worst and then slowly starts to improve. May apply heat to the side of the abdomen 1/2-hour out of every 4 hours to relieve pain and inflammation. Continue your meloxicam 15 mg daily. Of note narcotic pain medications tend to make you constipated. Suggest picking up some MiraLAX powder and taking 1 scoop daily while on the pain medicine to prevent constipation from occurring. If not completely back to normal in 14 days time you should be reviewed by physician. Sepsis Event Note (ED) - Evaluation Sepsis Screening Result: No Definite Risk - Focused Exam Vital Signs: Vital Signs Temp Pulse Resp BP Pulse Ox 07/07/20 10:13 36.4 C 104 H 20 161/114 H 98
[2020-07-07] MEDS ORDERED: Acetaminophen/oxyCODONE 325-5 MG Tab PO ONE (10:31)
[2020-07-07] MEDS ORDERED: Ondansetron 4 MG Tab.DIS PO ONE (10:31)
== END 2020-07-07 11:04 | disposition home or self-care (01) ==
LOC: JD.ED 10:01
DX: S39.011A Strain of muscle, fascia and tendon of abdomen, initial encounter (principal); I10 Essential (primary) hypertension; E11.42 Type 2 diabetes mellitus with diabetic polyneuropathy; E66.01 Morbid (severe) obesity due to excess calories; Z68.43 Body mass index [BMI] 50.0-59.9, adult; Z91.018 Allergy to other foods; Z91.013 Allergy to seafood; X58.XXXA Exposure to other specified factors, initial encounter
CPT/HCPCS: 99283; A9270

== ENCOUNTER 2021-04-17 12:25 | Emergency (ER) | payer BC, MEDICAID ==
[2021-04-17 13:28] VITALS: BP 207/132; PULSE 101
[2021-04-17] MEDS ORDERED: Ketorolac 60 MG/2 ML SDV IM ONE (13:47)
--- NOTE | 2021-04-17 14:25 | CR ---
Chest: Frontal view of the chest was obtained. Comparison: No prior chest x-ray is available, prior chest CT of 04/30/20 was utilized. Heart size and mediastinum are normal. Lungs are clear with no acute parenchymal change. Bony structures show nothing acute. Impression: 1. Nothing acute is seen on frontal chest x-ray. Diagnostic code #1
--- NOTE | 2021-04-17 14:58 | EDM.PDOC ---
ED HPI GENERAL MEDICAL PROBLEM - General Chief Complaint: Respiratory Problem Stated Complaint: COUGH SOB Time Seen by Provider: 04/17/21 13:16 Source of Information: Reports: Patient History Limitations: Reports: No Limitations - History of Present Illness INITIAL COMMENTS - FREE TEXT/NARRATIVE: 36-year-old male presents the emergency department with complaints of cough, shortness of breath, ear pain and throat pain. Patient states that he has been sick for well over a month with the symptoms. He has been to the walk-in clinic a few times and tested for Covid and has been negative. He states that he has a paroxysmal nonproductive cough that has caused him to have lateral rib pain with coughing. He states that his ear feels like someone is taking an ice pick and poking it into his right ear and his throat has been very sore. He denies any fever, chills, nausea, vomiting or diarrhea.He does have a history of hypertension for which he is supposed to take losartan however he states he has not taken it for quite some time. He is also a pack-a-day smoker. 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 Bilateral Upper Chest Pain Score (Numeric/FACES): 9 - Related Data Allergies Allergy/AdvReac Type Severity Reaction Status Date / Time Fish Containing Products Allergy Anaphylactic Verified 04/17/21 13:24 Shock shellfish derived Allergy Anaphylactic Verified 04/17/21 13:24 Shock Home Meds: Home Meds Losartan/Hydrochlorothiazide [Hyzaar 100-25 Tablet] 1 tab PO DAILY 11/09/16 [History] DULoxetine HCl [Duloxetine HCl] 60 mg PO DAILY 04/07/18 [History] Labetalol [Normodyne] 200 mg PO BID 07/07/20 [History] allopurinoL [Zyloprim] 100 mg PO DAILY 07/07/20 [History] amLODIPine Besylate [Norvasc] 10 mg PO DAILY 07/07/20 [History] Amoxicillin 875 mg PO BID #10 tablet 04/17/21 [Rx] Benzonatate [Tessalon Perle] 100 mg PO TID PRN #12 capsule 04/17/21 [Rx] Past Medical History HEENT History: Reports: Impaired Vision Cardiovascular History: Reports: Hypertension Respiratory History: Reports: None Gastrointestinal History: Reports: None Genitourinary History: Reports: None Musculoskeletal History: Reports: Back Pain, Chronic, Other (See Below) Other Musculoskeletal History: carpal tunnel syndrome Neurological History: Reports: Neuropathy, Peripheral Psychiatric History: Reports: None Endocrine/Metabolic History: Reports: Obesity/BMI 30+ Other Endocrine/Metabolic History: Prediabetic Hematologic History: Reports: None Immunologic History: Reports: None Oncologic (Cancer) History: Reports: None Dermatologic History: Reports: None - Past Surgical History HEENT Surgical History: Reports: None Cardiovascular Surgical History: Reports: None Respiratory Surgical History: Reports: None GI Surgical History: Reports: Colonoscopy, Hernia, Inguinal Other GI Surgeries/Procedures: Left and right Inguinal and umbilical Male Surgical History: Reports: None Endocrine Surgical History: Reports: None Neurological Surgical History: Reports: Spinal Fusion Musculoskeletal Surgical History: Reports: Carpal Tunnel, Other (See Below) Other Musculoskeletal Surgeries/Procedures:: back surgery of L4L5, wrist fusion x 4, shoulder surgery, knee surgery, right carpal tunnel release Oncologic Surgical History: Reports: None Dermatological Surgical History: Reports: None Social & Family History - Family History Family Medical History: No Pertinent Family History Cardiac: Reports: High Cholesterol, Hypertension - Tobacco Use Tobacco Use Status *Q: Current Every Day Tobacco User Years of Tobacco use: 25 Packs/Tins Daily: 0.5 Used Tobacco, but Quit: No Second Hand Smoke Exposure: No - Caffeine Use Caffeine Use: Reports: Energy Drinks - Recreational Drug Use Recreational Drug Use: No - Living Situation & Occupation Living situation: Reports: Occupation: Employed ED ROS GENERAL - Review of Systems Review Of Systems: Comprehensive ROS is negative, except as noted in HPI. ED EXAM, GENERAL - Physical Exam Exam: See Below Exam Limited By: No Limitations General Appearance: Alert, WD/WN, Mild Distress Ears: Normal External Exam, Normal Canal, Hearing Grossly Normal. No: Normal TMs (Right tympanic membrane dull, bulging and erythematous) Ear Exam: Right Ear: Erythema, Tenderness, TM Dull, TM Red, TM Bulging, Left Ear: TM normal, Bilateral Ear: Canal Normal Nose: Normal Inspection Throat/Mouth: Normal Inspection, Normal Lips, Normal Voice, No Airway Compromise, Inflammation Head: Atraumatic, Normocephalic Neck: Normal Inspection, Supple. No: Non-Tender (Tenderness noted in right tonsillar area with palpation), Lymphadenopathy (L), Lymphadenopathy (R) Respiratory/Chest: No Respiratory Distress, Lungs Clear, Normal Breath Sounds, No Accessory Muscle Use, Chest Non-Tender Cardiovascular: Normal Peripheral Pulses, Regular Rate, Rhythm, No Edema, No Murmur Peripheral Pulses: 2+: Radial (L), Radial (R) GI/Abdominal: Normal Bowel Sounds, Soft, Non-Tender, No Distention (Male) Exam: Deferred Rectal (Males) Exam: Deferred Back Exam: Normal Inspection Extremities: Normal Inspection Neurological: Alert, Oriented, Normal Cognition Psychiatric: Normal Affect, Normal Mood Skin Exam: Warm, Dry, Intact, Normal Color, No Rash Lymphatic: No Adenopathy Course - Vital Signs Text/Narrative:: As stated above, patient presents with a 1+ month history of cough, shortness of breath, ear pain and sore throat. Patient is mildly tachycardic with heart rate of 101, blood pressure is elevated at 207/132, and O2 saturations are 95% on room air. Patient's right tympanic membrane is dull, bulging and erythematous. Left tympanic membrane is unremarkable. Patient's oropharynx is reddened however I do not appreciate any exudate. Patient does have tenderness noted in the right tonsillar area when palpated however I do not appreciate any swollen lymph nodes. Lung sounds are clear to auscultation in all duggan. We will obtain a chest x-ray, lab studies to include a CBC, CMP, magnesium, C- reactive protein as well as Covid, influenza and strep testing. Last Recorded V/S: Last Vital Signs Temp 97.4 F 04/17/21 13:24 Pulse 101 H 04/17/21 13:24 Resp 18 04/17/21 13:24 BP 207/132 H 04/17/21 13:24 Pulse Ox 95 04/17/21 13:24 - Orders/Labs/Meds Orders: Active Orders 24 hr Category Date Time Status Sodium Chloride 0.9% [Normal Saline] 100 ml Med 04/17/21 15:30 Active IV ASDIRECTED Sodium Chloride 0.9% [Saline Flush] Med 04/17/21 15:21 Active 10 ml FLUSH ONETIME PRN Medication Orders Sodium Chloride (Normal Saline) 100 mls @ 60 mls/hr IV ASDIRECTED [facility] Last Admin: 04/17/21 16:02 Dose: 60 mls/hr Documented by: BECCA Sodium Chloride (Sodium Chloride 0.9% 10 Ml Syringe) 10 ml FLUSH ONETIME PRN PRN Reason: Keep Vein Open Last Admin: 04/17/21 16:02 Dose: 10 ml Documented by: [id number] Labs: Laboratory Tests 04/17/21 04/17/21 04/17/21 Range/Units 13:15 14:05 14:05 WBC 15.74 H (4.23-9.07) K/mm3 RBC 5.37 (4.63-6.08) M/mm3 Hgb 16.6 (13.7-17.5) gm/dl Hct 53.5 H (40.1-51.0) % MCV 99.6 H (79.0-92.2) fl MCH 30.9 (25.7-32.2) pg MCHC 31.0 L (32.2-35.5) g/dl RDW Std Deviation 53.7 H (35.1-43.9) fL Plt Count 183 (163-337) K/mm3 MPV 10.7 (9.4-12.3) fl Neut % (Auto) 74.0 H (34.0-67.9) % Lymph % (Auto) 14.2 L (21.8-53.1) % Darke % (Auto) 10.1 (5.3-12.2) % Eos % (Auto) 0.8 (0.8-7.0) Baso % (Auto) 0.3 (0.1-1.2) % Neut # (Auto) 11.65 H (1.78-5.38) K/mm3 Lymph # (Auto) 2.24 (1.32-3.57) K/mm3 Darke # (Auto) 1.59 H (0.30-0.82) K/mm3 Eos # (Auto) 0.13 (0.04-0.54) K/mm3 Baso # (Auto) 0.04 (0.01-0.08) K/mm3 Manual Slide Review Abnormal smear D-Dimer, Quantitative 0.78 H (0.19-0.50) mg/L Sodium (136-145) mEq/L Potassium (3.5-5.1) mEq/L Chloride (98-107) mEq/L Carbon Dioxide (21-32) mEq/L Anion Gap (5-15) BUN (7-18) mg/dL Creatinine (0.7-1.3) mg/dL Est Cr Clr Drug Dosing mL/min Estimated GFR (MDRD) (>60) mL/min BUN/Creatinine Ratio (14-18) Glucose (70-99) mg/dL Calcium (8.5-10.1) mg/dL Magnesium (1.8-2.4) mg/dL Total Bilirubin (0.2-1.0) mg/dL AST (15-37) U/L ALT (16-63) U/L Alkaline Phosphatase (46-116) U/L C-Reactive Protein (<1.0) mg/dL Total Protein (6.4-8.2) g/dl Albumin (3.4-5.0) g/dl Globulin gm/dL Albumin/Globulin Ratio (1-2) SARS-CoV-2 RNA (RENNY) Negative (NEGATIVE) Group A Strep (PCR) (NOT DETECT) 04/17/21 04/17/21 Range/Units 14:05 14:35 WBC (4.23-9.07) K/mm3 RBC (4.63-6.08) M/mm3 Hgb (13.7-17.5) gm/dl Hct (40.1-51.0) % MCV (79.0-92.2) fl MCH (25.7-32.2) pg MCHC (32.2-35.5) g/dl RDW Std Deviation (35.1-43.9) fL Plt Count (163-337) K/mm3 MPV (9.4-12.3) fl Neut % (Auto) (34.0-67.9) % Lymph % (Auto) (21.8-53.1) % Darke % (Auto) (5.3-12.2) % Eos % (Auto) (0.8-7.0) Baso % (Auto) (0.1-1.2) % Neut # (Auto) (1.78-5.38) K/mm3 Lymph # (Auto) (1.32-3.57) K/mm3 Darke # (Auto) (0.30-0.82) K/mm3 Eos # (Auto) (0.04-0.54) K/mm3 Baso # (Auto) (0.01-0.08) K/mm3 Manual Slide Review D-Dimer, Quantitative (0.19-0.50) mg/L Sodium 142 (136-145) mEq/L Potassium 4.7 (3.5-5.1) mEq/L Chloride 103 (98-107) mEq/L Carbon Dioxide 33 H (21-32) mEq/L Anion Gap 10.7 (5-15) BUN 10 (7-18) mg/dL Creatinine 1.1 (0.7-1.3) mg/dL Est Cr Clr Drug Dosing 108.83 mL/min Estimated GFR (MDRD) > 60 (>60) mL/min BUN/Creatinine Ratio 9.1 L (14-18) Glucose 131 H (70-99) mg/dL Calcium 9.3 (8.5-10.1) mg/dL Magnesium 2.1 (1.8-2.4) mg/dL Total Bilirubin 0.5 (0.2-1.0) mg/dL AST 27 (15-37) U/L ALT 67 H (16-63) U/L Alkaline Phosphatase 144 H (46-116) U/L C-Reactive Protein 4.8 H* (<1.0) mg/dL Total Protein 6.4 (6.4-8.2) g/dl Albumin 3.6 (3.4-5.0) g/dl Globulin 2.8 gm/dL Albumin/Globulin Ratio 1.3 (1-2) SARS-CoV-2 RNA (RENNY) (NEGATIVE) Group A Strep (PCR) Not detected (NOT DETECT) Meds: Medications Generic Name Dose Route Start Last Admin Trade Name Freq PRN Reason Stop Dose Admin Sodium Chloride 100 mls @ 60 mls/hr 04/17/21 15:30 04/17/21 16:02 Normal Saline IV 60 mls/hr ASDIRECTED OFE Administration Sodium Chloride 10 ml 04/17/21 15:21 04/17/21 16:02 Sodium Chloride 0.9% 10 Ml Syringe FLUSH 10 ml ONETIME PRN Administration Keep Vein Open Discontinued Medications Generic Name Dose Route Start Last Admin Trade Name Freq PRN Reason Stop Dose Admin Iopamidol 100 ml 04/17/21 15:21 04/17/21 16:02 Iopamidol 755 Mg/Ml 100 Ml Bottle IVPUSH 04/17/21 15:22 100 ml ONETIME ONE Administration Ketorolac Tromethamine 60 mg 04/17/21 13:47 04/17/21 14:43 Ketorolac 60 Mg/2 Ml Sdv IM 04/17/21 13:48 60 mg ONETIME ONE Administration - Re-Assessments/Exams Free Text/Narrative Re-Assessment/Exam: 04/17/21 15:16 Hematology reveals a WBC of 15.74, hemoglobin 16.6, hematocrit 53.5, platelet count 183 Coagulation reveals a D-dimer of 0.78 Chemistry reveals a sodium of 142, potassium 4.7, carbon dioxide 33, anion gap 10.7 BUN 10, creatinine 1.1, GFR greater than 60, glucose 131, magnesium 2.1, AST 27, ALT 67, alk phos 144, C-reactive protein 4.8 Patient is negative for Covid and group A strep Radiologist impression frontal view of the chest: 1. Nothing acute is seen on frontal chest x-ray. 04/17/21 16:22 Patient was sent for CTA due to elevated D-dimer. 04/17/21 16:[address] the chest: 1. Suboptimal opacification of the pulmonary arteries. No findings of pulmonary emboli within the main or proximal segmental branches. Smaller subsegmental pulmonary emboli could be missed. 2. Other normal findings as described above. Discussed the results with the patient. Did notify him that his white count is fairly significantly elevated. He then tells me that it has been significantly elevated for several years. He has had bone marrow studies and full work-ups regarding this and he states that no one can find a reason for this. Patient will be discharged home with a prescription for amoxicillin and Tessalon Perles. He will need to follow-up with his primary care provider as soon as he comes completed his course of antibiotics for recheck of his ear. Departure - Departure Time of Disposition: 16:58 Disposition: Home, Self-Care 01 Condition: Good Clinical Impression: Cough Otitis media of right ear Qualifiers: Otitis media type: unspecified Qualified Code(s): H66.91 - Otitis media, unspecified, right ear - Discharge Information Prescriptions: Amoxicillin 875 mg PO BID #10 tablet Benzonatate [Tessalon Perle] 100 mg PO TID PRN #12 capsule PRN Reason: Cough Instructions: Steps to Quit Smoking, [id number]-[id number], Cough, Adult, [id number], Otitis Media, Adult, [id number] Referrals: PCP,None [Primary Care Provider] - Forms: ED Department Discharge Additional Instructions: You were seen in the emergency department today with complaints of cough, right ear pain and a sore throat. On exam you did have an ear infection on your right ear. I have sent to prescription to clinic pharmacy for an antibiotic called amoxicillin. You will need to take 1 tab twice daily for 5 days to treat the infection. Chest x-ray and CT scan of your lungs were completed which do not show any sign of pneumonia or blood clots in your lungs. As discussed, you do need to stop smoking. I have sent prescription for medication called Kumar Mcgill to your pharmacy. You can take 1 tab 3 times daily as needed for cough. Recommend taking 1 just before bed to help you get a full night sleep. Your blood pressure was fairly elevated while in the emergency department, you do need to resume taking your blood pressure medications as if you do not it can set you up for heart attack or stroke. Recommend taking Tylenol or ibuprofen for pain in your right ear. Antibiotics to take 48 to 72 hours to fully kick in and for you to notice an effect spent likely will be a couple of days before you see any effect. Follow-up with your primary care provider for recheck of your ear as soon as you are done taking your antibiotics to be sure the infection has resolved. Should your condition worsen or change, do not hesitate returning to the emergency department. Sepsis Event Note (ED) - Evaluation Sepsis Screening Result: No Definite Risk - Focused Exam Vital Signs: Vital Signs Temp Pulse Resp BP Pulse Ox 04/17/21 13:24 97.4 F 101 H 18 207/132 H 95 - My Orders Last 24 Hours: My Active Orders 04/17/21 15:21 Sodium Chloride 0.9% [Saline Flush] 10 ml FLUSH ONETIME PRN 04/17/21 15:30 Sodium Chloride 0.9% [Normal Saline] 100 ml IV ASDIRECTED - Assessment/Plan Last 24 Hours: My Active Orders 04/17/21 15:21 Sodium Chloride 0.9% [Saline Flush] 10 ml FLUSH ONETIME PRN 04/17/21 15:30 Sodium Chloride 0.9% [Normal Saline] 100 ml IV ASDIRECTED
[2021-04-17] MEDS ORDERED: Sodium Chloride 0.9% 10 ML Syringe FLUSH PRN (15:21)
[2021-04-17] MEDS ORDERED: Iopamidol 755 Mg/ML 100 ML Bottle IVPUSH ONE (15:21)
[2021-04-17] MEDS ORDERED: Sodium Chloride 0.9% 100 ML IV SCH (15:30)
--- NOTE | 2021-04-17 16:40 | CT ---
CT chest Technique: Multiple axial sections through the chest were obtained. Intravenous contrast was utilized. Study was performed as a pulmonary angiogram protocol. Comparison: Prior CT angiogram chest study dated 04/30/20. Findings: Pulmonary arteries are not optimally opacified. No filling defects are seen within the main or proximal segmental arteries to indicate pulmonary embolism. Smaller pulmonary emboli within the subsegmental arteries could easily be missed. Thoracic aorta shows no aneurysm. Mediastinum shows no adenopathy. No axillary adenopathy is seen. No pericardial thickening is seen. Visualized upper abdominal structures show no discrete abnormality. Lung windows show no acute parenchymal change. Bone window settings were reviewed which show no acute osseous abnormality. Impression: 1. Suboptimal opacification of the pulmonary arteries. No findings of pulmonary emboli within the main or proximal segmental branches. Smaller subsegmental pulmonary emboli could be missed. 2. Other normal findings as described above. Diagnostic code #2
== END 2021-04-17 17:21 | disposition home or self-care (01) ==
LOC: JD.ED 12:25
DX: R05.9 Cough, unspecified (principal); H66.91 Otitis media, unspecified, right ear; I10 Essential (primary) hypertension; E66.9 Obesity, unspecified; Z68.43 Body mass index [BMI] 50.0-59.9, adult; Z72.0 Tobacco use; Z91.013 Allergy to seafood; Z20.822 Contact with and (suspected) exposure to COVID-19; Z79.899 Other long term (current) drug therapy
CPT/HCPCS: 36415; 71045; 71275; 80053; 83735; 85025; 85379; 86140; 87635; 87651; 96372; 99284; J1885; Q9967; 99283; U0002